=== PATIENT | male | born 1955 | race Caucasian/White ===

== ENCOUNTER 2019-04-18 06:11 | Day surgery (SDC) | payer BC ==
[~2019-04-18 06:11] MED LIST: ASCO500; ASCO500 PO; ASPI81CH PO; ATOR20 PO; B Complete1 EACH PO; CELE100 PO; CITA20 PO; CODACE30; CYAN1000 PO; ESCI5 PO; MULVITMIND PO; OXYACE5T PO; Omeprazole20 M1 PO; Prilosec Otc20 MG PO; Prinivil10 MG PO; SUBOXONE 2 MG-1 EACH SL; VOLTAREN 1% GEL TOP
[2019-04-18] MEDS ORDERED: VENL25 PO (06:48)
--- NOTE | 2019-04-18 07:05 | NUR ---
Ambulatory in Day Surgery. Surgical site prepped with 2% Chlorhexidine cloth wipe. History, Chart, Medications and Allergies reviewed before start of procedure. Lungs clear T/O to Auscultation. Patient confirms NPO status and agrees with scheduled surgery. Pre-Op teaching done. Pt verbalizes understanding. Patient States Post-Procedure ride home has been arranged. Patient reports completing Chlorhexadine shower X2 prior to admission to hospital.
--- NOTE | 2019-04-18 08:21 | NUR ---
04/18/19 0821 Mitul Lr CALLAWAY CATH PLACED PER Anthony BRIDGES RN
--- NOTE | 2019-04-18 13:15 | NUR ---
Patient up to Ambulate independently. Gait steady. Discharge instructions reviewed with patient. Patient verbalizes understanding. Copy given to patient to take home. Patient States Post-Procedure ride home has been arranged. Surgical sites x 3 clean, dry, and intact. Dermabond in place over incisions. Agustin had an extended stay due to oxygen desaturation on activity to 84%. After the oral pain medication began to alleviate his pain, his oxygen saturations maintained at 92% and above. He was educated on the importance of taking slow, deep breaths. He was observed holding his breath during activity and was coached to avoid holding his breath. His is engaged in his care and was providing coaching appropriately. He responded well to his 's coaching.
== END 2019-04-18 22:49 | disposition home or self-care (01) ==
LOC: ORSCMMR 06:11 → ORD 07:30 → ORSCMMR 22:49
PROVIDERS: Surgery
PROC: 8E0W4CZ Robotic Assisted Procedure of Trunk Region, Percutaneous Endoscopic Approach (ICD-10-PCS; principal; 2019-04-18 07:30)
PROC: 0YUA4JZ Supplement Bilateral Inguinal Region with Synthetic Substitute, Percutaneous Endoscopic Approach (ICD-10-PCS; principal; 2019-04-18 07:30)
DX: K40.91 Unilateral inguinal hernia, without obstruction or gangrene, recurrent (principal); K40.90 Unilateral inguinal hernia, without obstruction or gangrene, not specified as recurrent; I10 Essential (primary) hypertension; K21.9 Gastro-esophageal reflux disease without esophagitis; F17.210 Nicotine dependence, cigarettes, uncomplicated; Z79.899 Other long term (current) drug therapy
CPT/HCPCS: 49651; 49650; S2900; A9270-GY; C1729; C1781; J0690; J1100; J2250; J2405; J2704; J3010; J7030; J7120